=== PATIENT | female | born 1995 | race Caucasian/White ===

== ENCOUNTER 2018-01-27 00:24 | Emergency (ER) | payer MEDICAID ==
[2018-01-27 00:31] VITALS: BP 132/72
== END 2018-01-27 04:00 | disposition left against medical advice (07) ==
LOC: ER 00:24
DX: Z53.21 Procedure and treatment not carried out due to patient leaving prior to being seen by health care provider (principal)

== ENCOUNTER 2019-02-11 02:46 | Outpatient (CLI) | payer MEDICAID ==
[2019-02-11 03:27] LABS: APPEARANCE,URINE CLOUDY; BILIRUBIN,URINE NEGATIVE (NEGATIVE); COLOR,URINE YELLOW; GLUCOSE, URINE NEGATIVE (NEGATIVE); KETONES,URINE NEGATIVE (NEGATIVE); LEUKOCYTE ESTERASE,URINE LARGE (NEGATIVE); NITRITE,URINE NEGATIVE (NEGATIVE); PROTEIN,URINE NEGATIVE (NEGATIVE); UROBILINOGEN,URINE NEGATIVE mg/dL (<2.0)
[2019-02-11 03:40] LABS: URINE AMPHETAMINES SCREEN NEGATIVE; URINE BARBITURATES SCREEN NEGATIVE; URINE BENZODIAZEPINES SCREEN NEGATIVE; URINE COCAINE SCREEN NEGATIVE; URINE MARIJUANA (THC) SCREEN NEGATIVE; URINE METHADONE SCREEN NEGATIVE; URINE PHENCYCLIDINE SCREEN NEGATIVE
== END 2019-02-11 06:40 | disposition home or self-care (01) ==
LOC: LC 02:46 → EEVIPCON 02:46 → LC 06:40
PROVIDERS: ATTEND Obstetrics & Gynecology
DX: O26.899 Other specified pregnancy related conditions, unspecified trimester (principal); Z91.81 History of falling; Z87.891 Personal history of nicotine dependence
CPT/HCPCS: 80307; 81001

== ENCOUNTER 2019-02-11 20:53 | Emergency (ER) | payer MEDICAID ==
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
[2019-02-11] MEDS ORDERED: ACETAMINOPHEN 325 MG TABLET PO ONE (22:46)
[2019-02-11 23:05] VITALS: BP 133/62
== END 2019-02-11 23:06 | disposition home or self-care (01) ==
LOC: ER 20:53
DX: O9A.213 Injury, poisoning and certain other consequences of external causes complicating pregnancy, third trimester (principal); S39.012A Strain of muscle, fascia and tendon of lower back, initial encounter; S40.011A Contusion of right shoulder, initial encounter; S30.1XXA Contusion of abdominal wall, initial encounter; S60.416A Abrasion of right little finger, initial encounter; M54.9 Dorsalgia, unspecified; Y04.0XXA Assault by unarmed brawl or fight, initial encounter; Z87.891 Personal history of nicotine dependence
CPT/HCPCS: 99283; J3490

== ENCOUNTER 2019-03-27 12:12 | Outpatient (CLI) | payer MEDICAID ==
[2019-03-27] MEDS ORDERED: RINGERS SOLUTION,LACTATED 1,000 ML IV PRN (12:37)
[2019-03-27] MEDS ORDERED: PROMETHAZINE HCL INJ 25 MG/1 ML VIAL ONE (12:37)
[2019-03-27] MEDS ORDERED: RINGERS SOLUTION,LACTATED 1,000 ML IV ONE (12:37)
[2019-03-27] MEDS ORDERED: PROMETHAZINE HCL INJ 25 MG/1 ML VIAL IV ONE (12:38)
[2019-03-27 12:41] LABS: BACTERIA (WET MOUNT) 4+ BACTERIA SEEN; RBCS (WET MOUNT) RARE RBCS SEEN; T.VAGINALIS (WET MOUNT) NO TRICHOMONAS SEEN; WBCS (WET MOUNT) 4+ WBCS SEEN; YEAST (WET MOUNT) NO YEAST SEEN
[2019-03-27 12:42] LABS: EPITHELIALS (WET MOUNT) 4+ EPITHELIALS SEEN
[2019-03-27 12:46] LABS: APPEARANCE,URINE SLIGHTLY-CLOUDY; BILIRUBIN,URINE NEGATIVE (NEGATIVE); COLOR,URINE YELLOW; GLUCOSE, URINE NEGATIVE (NEGATIVE); KETONES,URINE TRACE mg/dL (NEGATIVE); LEUKOCYTE ESTERASE,URINE MODERATE (NEGATIVE); NITRITE,URINE NEGATIVE (NEGATIVE); PROTEIN,URINE NEGATIVE (NEGATIVE); URINE SPECIFIC GRAVITY 1.018
[2019-03-27 13:03] LABS: URINE AMPHETAMINES SCREEN NEGATIVE; URINE BARBITURATES SCREEN NEGATIVE; URINE BENZODIAZEPINES SCREEN NEGATIVE; URINE COCAINE SCREEN NEGATIVE; URINE MARIJUANA (THC) SCREEN NEGATIVE; URINE METHADONE SCREEN NEGATIVE; URINE PHENCYCLIDINE SCREEN NEGATIVE
[2019-03-27] MEDS ORDERED: DEXTROSE 5%-LACTATED RINGERS 1,000 ML IV PRN (14:01)
[2019-03-27 14:12] LABS: CHLAM PCR NOT DETECTED (NOT DETECT)
[2019-03-27 16:07] LABS: ABSOLUTE LYMPHOCYTES (AUTO) 0.8 10^3/uL (0.5-4.7); ABSOLUTE MONOCYTES (AUTO) 0.4 10^3/uL (0.1-1.4); ABSOLUTE NEUT (AUTO) 5.3 10^3/uL (1.7-8.2); BASOPHILS % (AUTO) 0.1 % (0-2); EOSINOPHILS % (AUTO) 0.2 % (0-6); HEMATOCRIT 31.4 % (36.0-47.0); HEMOGLOBIN 10.5 g/dL (12.0-15.5); LYMPHOCYTES % (AUTO) 11.7 % (13-45); MEAN CORPUSCULAR HEMOGLOBIN 28.3 pg (27.0-33.4); MEAN CORPUSCULAR HGB CONC 33.6 g/dL (32.0-36.0); MEAN CORPUSCULAR VOLUME 84 fl (80-97); MONOCYTES % (AUTO) 6.3 % (3-13); PLATELET COUNT 156 10^3/uL (150-450); RED BLOOD COUNT 3.72 10^6/uL (3.72-5.28); RED CELL DISTRIBUTION WIDTH 14.5 % (11.5-14.0); SEGMENTED NEUTROPHILS % (AUTO) 81.7 % (42-78); TOTAL CELLS COUNTED % (AUTO) 100 %; WHITE BLOOD COUNT 6.5 10^3/uL (4.0-10.5)
[2019-03-27 16:26] LABS: ALBUMIN 2.8 g/dL (3.5-5.0); ALKALINE PHOSPHATASE 79 U/L (38-126); ANION GAP 6 (5-19); ASPARTATE AMINO TRANSFERASE 13 U/L (14-36); BILIRUBIN,DIRECT 0.2 mg/dL (0.0-0.4); BILIRUBIN,TOTAL 0.4 mg/dL (0.2-1.3); BLOOD UREA NITROGEN 5 mg/dL (7-20); CALCIUM 8.3 mg/dL (8.4-10.2); CARBON DIOXIDE 24 mmol/L (22-30); CHLORIDE 105 mmol/L (98-107); GLUCOSE 81 mg/dL (75-110); POTASSIUM 3.7 mmol/L (3.6-5.0); TOTAL PROTEIN 5.4 g/dL (6.3-8.2)
--- NOTE | 2019-03-27 17:09 | RADIOLOGY REPORT (SQ) ---
EXAM DESCRIPTION: U/S OB LIMITED COMPLETED DATE/TIME: 03/27/2019 5:00 pm REASON FOR STUDY: iup 34.5 for CAROL COMPARISON: None. TECHNIQUE: Limited transabdominal grayscale ultrasound for evaluation of specific requested obstetri herman parameters. LIMITATIONS: None. FINDINGS: CERVICAL LENGTH: 4.1 cm. Closed. CAROL: 12.4 cm. Cm. FHR: 160 beats per minute. PRESENTATION: Cephalic. PLACENTA: Anterior, grade 1. ANATOMY: Not assessed OTHER: No other significant findings. IMPRESSION: LIMITED OBSTETRICAL ULTRASOUND WITH MEASURED PARAMETERS DELINEATED ABOVE. Trimester of : Third trimester - 28 weeks to delivery. TECHNICAL DOCUMENTATION: JOB ID: [id number] [employer]- All Rights Reserved Reading location - IP/workstation name: [email or web address]
== END 2019-03-27 21:47 | disposition home or self-care (01) ==
LOC: EEVIPCON 12:12 → LC 12:12
PROVIDERS: ATTEND Student in an Organized Health Care Education/Training Program
DX: O21.2 Late vomiting of pregnancy (principal); Z3A.34 34 weeks gestation of pregnancy
CPT/HCPCS: 59025; 36415; 87210; 85025; 80053; 81001; 80307; 87491; 87591; 84112; 76815; J2550; 87086

== ENCOUNTER 2019-04-23 22:56 | Outpatient (CLI) | payer MEDICAID ==
[2019-04-23 23:48] LABS: APPEARANCE,URINE CLOUDY; BILIRUBIN,URINE NEGATIVE (NEGATIVE); COLOR,URINE AMBER; GLUCOSE, URINE NEGATIVE (NEGATIVE); KETONES,URINE TRACE mg/dL (NEGATIVE); LEUKOCYTE ESTERASE,URINE LARGE (NEGATIVE); NITRITE,URINE NEGATIVE (NEGATIVE); PROTEIN,URINE 100 mg/dL (NEGATIVE); URINE SPECIFIC GRAVITY 1.027
[2019-04-24 00:17] LABS: URINE AMPHETAMINES SCREEN NEGATIVE; URINE BARBITURATES SCREEN NEGATIVE; URINE BENZODIAZEPINES SCREEN NEGATIVE; URINE COCAINE SCREEN NEGATIVE; URINE MARIJUANA (THC) SCREEN NEGATIVE; URINE METHADONE SCREEN NEGATIVE; URINE PHENCYCLIDINE SCREEN NEGATIVE
--- NOTE | 2019-04-24 00:34 | Non Stress Test Report ---
Non Stress Test Datetime Report Generated by CPN: 04/24/2019 00:33 DEMOGRAPHIC EGA NST: 38.4 INDICATION Indication for Study: Ordered by Provider; Other Indication for Study (NST) Other: Labor check MONITORING Monitor Explained: Monitor Explained; Test Explained; Patient Verbalized Understanding Time on Monitor: 04/23/2019 23:39 Time on Monitor: 04/23/2019 23:39 Time off Monitor: 04/24/2019 00:30 NST Duration: 51 NST INTERVENTIONS NST Interventions: PO Hydration; IV Fluids Physician Notified NST: Dr. Roland Physician Notified NST: Roland BABY A: [id number] BABY A Movement : Present Movement : Present Contraction Frequency : 0 FHR Baseline : 145 Accelerations : 15X15 Decelerations : Variable Variability : Moderate 6-25bpm NST Review: Meets Criteria for Reactive NST NST Review and Verified By : Cullen Garcia RN NST Results: Reactive NST COMMENTS NST Comments: Provider reviewed strip. NST REPORT Report Trigger: Send Report
== END 2019-04-24 01:42 | disposition home or self-care (01) ==
LOC: LC 22:56
PROVIDERS: ATTEND Obstetrics & Gynecology
PROC: 4A1HXCZ Monitoring of Products of Conception, Cardiac Rate, External Approach (ICD-10-PCS; principal; 2019-04-23)
DX: O47.1 False labor at or after 37 completed weeks of gestation (principal); Z3A.38 38 weeks gestation of pregnancy
CPT/HCPCS: 59025; 80307; 81005; 84112

== ENCOUNTER 2019-04-30 05:57 | Inpatient (IN) | payer MEDICAID ==
[2019-04-27 11:52] LABS: ABSOLUTE LYMPHOCYTES (AUTO) 1.5 10^3/uL (0.5-4.7); ABSOLUTE MONOCYTES (AUTO) 0.6 10^3/uL (0.1-1.4); ABSOLUTE NEUT (AUTO) 4.5 10^3/uL (1.7-8.2); BASOPHILS % (AUTO) 0.3 % (0-2); EOSINOPHILS % (AUTO) 0.4 % (0-6); HEMOGLOBIN 11.8 g/dL (12.0-15.5); LYMPHOCYTES % (AUTO) 22.8 % (13-45); MEAN CORPUSCULAR HEMOGLOBIN 27.6 pg (27.0-33.4); MEAN CORPUSCULAR HGB CONC 33.8 g/dL (32.0-36.0); MEAN CORPUSCULAR VOLUME 82 fl (80-97); MONOCYTES % (AUTO) 8.6 % (3-13); PLATELET COUNT 212 10^3/uL (150-450); RED BLOOD COUNT 4.28 10^6/uL (3.72-5.28); RED CELL DISTRIBUTION WIDTH 15.8 % (11.5-14.0); SEGMENTED NEUTROPHILS % (AUTO) 67.9 % (42-78); TOTAL CELLS COUNTED % (AUTO) 100 %; WHITE BLOOD COUNT 6.6 10^3/uL (4.0-10.5)
[2019-04-27 11:55] LABS: APPEARANCE,URINE CLOUDY; BILIRUBIN,URINE NEGATIVE (NEGATIVE); CALCIUM OXALATE CRYSTALS,URINE TOO NUMEROUS TO CNT /HPF; COLOR,URINE AMBER; GLUCOSE, URINE NEGATIVE (NEGATIVE); KETONES,URINE NEGATIVE (NEGATIVE); LEUKOCYTE ESTERASE,URINE MODERATE (NEGATIVE); NITRITE,URINE NEGATIVE (NEGATIVE); PROTEIN,URINE 30 mg/dL (NEGATIVE); URINE SPECIFIC GRAVITY 1.026
[2019-04-27 12:07] LABS: URINE AMPHETAMINES SCREEN NEGATIVE; URINE BARBITURATES SCREEN NEGATIVE; URINE BENZODIAZEPINES SCREEN NEGATIVE; URINE COCAINE SCREEN NEGATIVE; URINE MARIJUANA (THC) SCREEN NEGATIVE; URINE METHADONE SCREEN NEGATIVE; URINE PHENCYCLIDINE SCREEN NEGATIVE
[2019-04-30] MEDS ORDERED: CEFAZOLIN 2 GM/D5W RTU 2 GM/50 ML RTUPB IV PRN (06:27)
[2019-04-30] MEDS ORDERED: RINGERS SOLUTION,LACTATED 1,000 ML IV ONE (06:30)
[2019-04-30] MEDS ORDERED: CEFAZOLIN INJ 1 GM VIAL ONE (06:33)
[2019-04-30] MEDS ORDERED: DIPHENHYDRAMINE HCL 50 MG/ML VIAL IV PRN (08:22)
[2019-04-30] MEDS ORDERED: FENTANYL CITRATE INJ/PF 100 MCG/2 ML AMPUL IV PRN ×3 (08:22)
[2019-04-30] MEDS ORDERED: OXYCODONE-ACETAMINOPHEN 5-325 MG TABLET PO PRN ×2 (08:22)
[2019-04-30] MEDS ORDERED: PROMETHAZINE HCL INJ 25 MG/1 ML VIAL IV PRN ×3 (08:22→09:48)
[2019-04-30] MEDS ORDERED: MEPERIDINE HCL/PF INJ 25 MG/1 ML DISP.SYRIN IV PRN (08:22)
[2019-04-30] MEDS ORDERED: MIDAZOLAM 2 MG/2 ML INJ ONE (08:28)
[2019-04-30] MEDS ORDERED: EPHEDRINE SULFATE INJ 50 MG/1 ML AMPULE ONE (08:28)
[2019-04-30] MEDS ORDERED: FENTANYL CITRATE INJ/PF 100 MCG/2 ML AMPUL ONE ×2 (08:28→11:48)
[2019-04-30] MEDS ORDERED: MORPHINE SULFATE 10 MG/ML INJ IM PRN (09:48)
[2019-04-30] MEDS ORDERED: SIMETHICONE 80 MG TAB.CHEW PO PRN (09:48)
[2019-04-30] MEDS ORDERED: OXYTOCIN/NORMAL SALINE 20 UNIT/1,000 ML RTUINJ IV PRN (09:48)
[2019-04-30] MEDS ORDERED: ACETAMINOPHEN 1,000 MG/100 ML RTUPB IV PRN (09:48)
[2019-04-30] MEDS ORDERED: MEASLES,MUMPS&RUBELLA VACC/PF 0.5 ML VIAL SUBCUT PRN (09:48)
[2019-04-30] MEDS ORDERED: ACETAMINOPHEN 325 MG TABLET PO PRN (09:48)
[2019-04-30] MEDS ORDERED: DIPH/PERTUSS(ACELL)/TETANUS VAC/PF 0.5 ML SYR (>=10YO) IM PRN (09:48)
--- NOTE | 2019-04-30 09:48 | PDOC DELIVERY SUMMARY ---
Delivery Summary - Maternal Hx : II Hx # Term Pregnancies: 1 JESSIE: 05/03/19 Gestational Age: 39/3 Risk Factors: Previous Ruptured Membranes: AROM Time of Rupture: 09:25 Fluids: Clear - Delivery Presentation: Vertex Heart Rate Monitoring: Done Pre-Operatively Support Person Present: Yes Location: LD : Scheduled Placenta: Within Normal Limits Nuchal Cord: Yes Delivery of Placenta Date: 04/30/19 Delivery of Placenta Time: 09:28 - Medications Type of Anesthesia:: Spinal
--- NOTE | 2019-04-30 09:51 | Operative Report ---
Operative Report DATE OF SURGERY: 04/30/19 PREOPERATIVE DIAGNOSIS: IUP at term prior section POSTOPERATIVE DIAGNOSIS: Same OPERATION: Repeat low transverse section delivery viable female SURGEON: SHERRY CASTILLO ANESTHESIA: Spinal TISSUE REMOVED OR ALTERED: Placenta COMPLICATIONS: None PROCEDURE: The patient was taken to the operating room where spinal anesthesia was obtained and found to be adequate. She was then prepped and draped in the normal sterile fashion and placed in the dorsal supine position with a leftward tilt. A Pfannenstiel skin incision was then made and carried through to the underlying layers of the fascia with the scalpel. The fascia was incised in the midline and the incision extended laterally with the Watkins scissors. The superior aspect of the fascial incision was then grasped with Duglas clamps elevated and the underlying rectus muscles dissected off [bluntly]. Attention was then turned to the inferior aspect of the fascial incision which in a similar fashion was grasped, tented up with Jackie clamps, and the rectus muscles dissected off [bluntly]. The rectus muscles were then in the midline and the peritoneum at the amount identified and entered [bluntly]. The peritoneal incision was then extended superiorly and inferiorly with good visualization of the bladder. [The bladder blade was inserted and the vesicouterine peritoneum identified grasped with Belgian pickups and entered sharply with the Metzenbaum scissors.[ his incision was then extended laterally with the Metzenbaum scissors and a bladder flap created digitally.] The bladder blade was then reinserted and the lower uterine segment incised in a transverse fashion with the scalpel. The uterine incision was then extended bluntly. The bladder blade was removed and the infant's head was delivered from cephalic presentation atraumatically. The nose and mouth were suctioned and the cord doubly clamped and cut. And the infant was handed off to waiting pediatricians. The placenta was then delivered manully and the uterus exteriorized and cleared of all clots and debris. The uterine incision was then repaired with 1-0 Vicryl in a running locked fashion. A second layer of the same suture was used to obtain hemostasis via imbrication of the initial layer. The uterus was returned to the patient's abdomen. The gutters were cleared of all clots and debris. All operative sites were noted to be hemostatic. The fascia was reapproximated with 0 Vicryl in a running fashion from each lateral edge to the midline. The patient tolerated the procedure well. Sponge lap needle and instrument counts are correct -2. 2 g of Ancef were given prior to skin incision. The patient was taken to the recovery area awake and in stable condition.
[2019-04-30] MEDS ORDERED: ACETAMINOPHEN 1,000 MG/100 ML RTUPB IV ONE (11:08)
[2019-04-30] MEDS ORDERED: OXYTOCIN 10 UNIT/ML VIAL ONE (11:11)
[2019-04-30] MEDS: PRENATAL VITAMIN W DHA CAPSULE PO SCH (12:21)
[2019-04-30] MEDS: DOCUSATE SODIUM 100 MG CAPSULE PO SCH ×2 (12:21→17:45)
[2019-04-30] MEDS: KETOROLAC TROMETHAMINE INJ/PF 30 MG/1 ML SDV IV SCH ×2 (13:07→21:11)
[2019-05-01] MEDS ORDERED: LIDOCAINE 0.5% INJ-PF (5 MG/ML) 50 ML SDV SUBCUT PRN (05:00)
[2019-05-01] MEDS ORDERED: LACTATED RINGERS 1000 ML IV PRN (05:00)
[2019-05-01] MEDS: KETOROLAC TROMETHAMINE INJ/PF 30 MG/1 ML SDV IV SCH ×3 (05:03→23:08)
[2019-05-01 06:47] LABS: HEMATOCRIT 29.9 % (36.0-47.0); HEMOGLOBIN 10.1 g/dL (12.0-15.5); MEAN CORPUSCULAR HEMOGLOBIN 27.9 pg (27.0-33.4); MEAN CORPUSCULAR HGB CONC 33.8 g/dL (32.0-36.0); MEAN CORPUSCULAR VOLUME 82 fl (80-97); PLATELET COUNT 180 10^3/uL (150-450); RED BLOOD COUNT 3.63 10^6/uL (3.72-5.28); RED CELL DISTRIBUTION WIDTH 16.2 % (11.5-14.0); WHITE BLOOD COUNT 10.7 10^3/uL (4.0-10.5)
[2019-05-01] MEDS: OXYCODONE-ACETAMINOPHEN 5-325 MG TABLET PO PRN ×3 (08:56→17:04)
[2019-05-01] MEDS: DOCUSATE SODIUM 100 MG CAPSULE PO SCH ×2 (08:59→17:02)
[2019-05-01] MEDS: PRENATAL VITAMIN W DHA CAPSULE PO SCH (08:59)
[2019-05-01] MEDS: IBUPROFEN 800 MG TABLET PO SCH ×2 (11:43→17:02)
--- NOTE | 2019-05-01 14:15 | PDOC PROGRESS REPORT ---
Subjective-OB Progress Note for:: 05/01/19 Subjective: reports bleeding slowing, pain controlled with current meds, denies needs, + passing gas Physical Exam (OB) Vital Signs: Temp Pulse Resp BP Pulse Ox 97.9 F 84 14 109/65 97 05/01/19 07:53 05/01/19 07:53 05/01/19 07:53 05/01/19 07:53 05/01/19 07:53 Intake & Output 04/30/19 05/01/19 05/02/19 06:59 06:59 06:59 Intake Total 720 Output Total 1600 Balance -880 - Dressing Removed: Yes - wet from shower, removed Closure Type: Surgical Glue - well approximated, no s/s infection - Abdomen Description: Soft, Round Hernia Present: No Fundal Description: Firm, Midline Fundal Height: u/u - u/2 - Abdominal Inspection: Other - bruise to low abdomen. pt states it is getting better Distension: No distension Tenderness: Nontender - Extremities Lower extremities: Duong's sign - neg Ankle: Normal, Nontender Objective-Diagnostic Laboratory: 05/01/19 06:29 05/01/19 06:29 WBC 10.7 H RBC 3.63 L Hgb 10.1 L Hct 29.9 L MCV 82 MCH 27.9 MCHC 33.8 RDW 16.2 H Plt Count 180 Assessment and Plan(PN) - Assessment and Plan (1) delivery delivered Is this a current diagnosis for this admission?: Yes - Time Spent with Patient Time with patient: Less than 15 minutes Medications reviewed and adjusted accordingly: Yes - Disposition Anticipated Discharge: Home Within: within 24 hours
[2019-05-02] MEDS: IBUPROFEN 800 MG TABLET PO SCH ×3 (00:15→12:02)
[2019-05-02] MEDS: KETOROLAC TROMETHAMINE INJ/PF 30 MG/1 ML SDV IV SCH (06:01)
[2019-05-02] MEDS ORDERED: INFLUENZA QUAD (6MOS+) 2019-20 VAC 0.5 ML SYR IM ONE (08:00)
[2019-05-02] MEDS: PRENATAL VITAMIN W DHA CAPSULE PO SCH (09:11)
[2019-05-02] MEDS: DOCUSATE SODIUM 100 MG CAPSULE PO SCH (09:11)
[2019-05-02] MEDS: OXYCODONE-ACETAMINOPHEN 5-325 MG TABLET PO PRN (09:11)
[2019-05-02 13:04] VITALS: BP 124/72
--- NOTE | 2019-05-02 13:33 | PDOC DISCHARGE SUMMARY ---
Impression - Admit/DC Date/PCP Admission Date/Primary Care Provider: 04/30/19 05:57 Discharge Date: 05/02/19 - Discharge Diagnosis (1) delivery delivered Is this a current diagnosis for this admission?: Yes (2) Acute blood loss anemia Is this a current diagnosis for this admission?: Yes - Additional Information Resuscitation Status: Full Code Discharge Diet: As Tolerated, Regular Discharge Activity: Activity As Tolerated, Balance Activity w/Rest, No Driving, No Lifting Over 10 Pounds, Pelvic Rest, No tub bath, Walk Frequently Prescriptions: Oxycodone HCl/Acetaminophen [Percocet 5-325 mg Tablet] 2 tab PO Q4HP PRN #20 tablet PRN Reason: For Pain Scale 3-5 Ibuprofen [Motrin 800 mg Tablet] 800 mg PO Q8HP PRN #30 tablet PRN Reason: Abdominal Cramping Docusate Sodium [Colace 100 mg Capsule] 100 mg PO BID #60 capsule Ferrous Sulfate [Feosol 325 mg Tablet] 325 mg PO BID #60 tablet Home Medications: Vit/Iron Fum/Folic AC [ Tablet] 1 each PO DAILY 02/11/19 Docusate Sodium [Colace 100 mg Capsule] 100 mg PO BID #60 capsule 05/02/19 Ferrous Sulfate [Feosol 325 mg Tablet] 325 mg PO BID #60 tablet 05/02/19 Ibuprofen [Motrin 800 mg Tablet] 800 mg PO Q8HP PRN #30 tablet 05/02/19 Oxycodone HCl/Acetaminophen [Percocet 5-325 mg Tablet] 2 tab PO Q4HP PRN #20 tablet 05/02/19 Results Laboratory Results: WBC 10.7 10^3/uL (4.0-10.5) H 05/01/19 06:29 RBC 3.63 10^6/uL (3.72-5.28) L 05/01/19 06:29 Hgb 10.1 g/dL (12.0-15.5) L 05/01/19 06:29 Hct 29.9 % (36.0-47.0) L 05/01/19 06:29 MCV 82 fl (80-97) 05/01/19 06:29 MCH 27.9 pg (27.0-33.4) 05/01/19 06:29 MCHC 33.8 g/dL (32.0-36.0) 05/01/19 06:29 RDW 16.2 % (11.5-14.0) H 05/01/19 06:29 Plt Count 180 10^3/uL (150-450) 05/01/19 06:29 Lymph % (Auto) 22.8 % (13-45) 04/27/19 11:11 Campbell % (Auto) 8.6 % (3-13) 04/27/19 11:11 Eos % (Auto) 0.4 % (0-6) 04/27/19 11:11 Baso % (Auto) 0.3 % (0-2) 04/27/19 11:11 Absolute Neuts (auto) 4.5 10^3/uL (1.7-8.2) 04/27/19 11:11 Absolute Lymphs (auto) 1.5 10^3/uL (0.5-4.7) 04/27/19 11:11 Absolute Monos (auto) 0.6 10^3/uL (0.1-1.4) 04/27/19 11:11 Absolute Eos (auto) 0.0 10^3/uL (0.0-0.6) 04/27/19 11:11 Absolute Basos (auto) 0.0 10^3/uL (0.0-0.2) 04/27/19 11:11 Seg Neutrophils % 67.9 % (42-78) 04/27/19 11:11 Urine Color BAMBI 04/27/19 11:00 Urine Appearance CLOUDY 04/27/19 11:00 Urine pH 6.0 (5.0-9.0) 04/27/19 11:00 Ur Specific Winters 1.026 04/27/19 11:00 Urine Protein 30 mg/dL (NEGATIVE) H 04/27/19 11:00 Urine Glucose (UA) NEGATIVE mg/dL (NEGATIVE) 04/27/19 11:00 Urine Ketones NEGATIVE mg/dL (NEGATIVE) 04/27/19 11:00 Urine Blood NEGATIVE (NEGATIVE) 04/27/19 11:00 Urine Nitrite NEGATIVE (NEGATIVE) 04/27/19 11:00 Urine Bilirubin NEGATIVE (NEGATIVE) 04/27/19 11:00 Urine Urobilinogen 4.0 mg/dL (<2.0) H 04/27/19 11:00 Ur Leukocyte Esterase MODERATE (NEGATIVE) H 04/27/19 11:00 Urine WBC (Auto) 20 /HPF 04/27/19 11:00 Urine RBC (Auto) 1 /HPF 04/27/19 11:00 Squamous Epi Cells Auto 25 /HPF 04/27/19 11:00 Calcium Oxalate Cr Auto TOO NUMEROUS TO CNT /HPF 04/27/19 11:00 Urine Mucus (Auto) MANY /LPF 04/27/19 11:00 Urine Ascorbic Acid NEGATIVE (NEGATIVE) 04/27/19 11:00 Urine Opiates Screen NEGATIVE 04/27/19 11:00 Urine Methadone Screen NEGATIVE 04/27/19 11:00 Ur Barbiturates Screen NEGATIVE 04/27/19 11:00 Ur Phencyclidine Scrn NEGATIVE 04/27/19 11:00 Ur Amphetamines Screen NEGATIVE 04/27/19 11:00 U Benzodiazepines Scrn NEGATIVE 04/27/19 11:00 Urine Cocaine Screen NEGATIVE 04/27/19 11:00 U Marijuana (THC) Screen NEGATIVE 04/27/19 11:00 Blood Type O POSITIVE 04/29/19 14:54 Antibody Screen NEGATIVE 04/29/19 14:54
== END 2019-05-02 14:50 | disposition home or self-care (01) | DRG 788 ==
LOC: 2S 05:57
PROVIDERS: ADMIT Obstetrics & Gynecology Gynecology; ATTEND Obstetrics & Gynecology Gynecology
PROC: 10D00Z1 Extraction of Products of Conception, Low, Open Approach (ICD-10-PCS; principal; 2019-04-30 09:00)
PROC: 3E02340 Introduction of Influenza Vaccine into Muscle, Percutaneous Approach (ICD-10-PCS; 2019-05-02)
DX: O34.211 Maternal care for low transverse scar from previous cesarean delivery (principal); N85.8 Other specified noninflammatory disorders of uterus; Z3A.39 39 weeks gestation of pregnancy; Z37.0 Single live birth; O99.02 Anemia complicating childbirth; Z23 Encounter for immunization
CPT/HCPCS: 1961; 36415; 80307; 81001; 85025; 85027; 86850; 86900; 86901; 90686; 94799; J0131; J1885; J2250; J2270; J2590; J3010; J3490; J7120

== ENCOUNTER 2019-08-01 23:04 | Emergency (ER) | payer SELFPAY ==
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
[2019-08-02] MEDS ORDERED: KETOROLAC TROMETHAMINE 60 MG/2 ML SDV IM ONE (02:05)
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
[2019-08-02 03:03] VITALS: BP 112/71
== END 2019-08-02 03:03 | disposition home or self-care (01) ==
LOC: ER 23:04
DX: S09.90XA Unspecified injury of head, initial encounter (principal); S40.811A Abrasion of right upper arm, initial encounter; S80.211A Abrasion, right knee, initial encounter; S20.91XA Abrasion of unspecified parts of thorax, initial encounter; R07.9 Chest pain, unspecified; R51 Headache; Y04.2XXA Assault by strike against or bumped into by another person, initial encounter; Y92.009 Unspecified place in unspecified non-institutional (private) residence as the place of occurrence of the external cause; F17.200 Nicotine dependence, unspecified, uncomplicated; Z88.2 Allergy status to sulfonamides
CPT/HCPCS: 99284; 96372; 71046; J1885

== ENCOUNTER 2019-12-08 21:20 | Emergency (ER) | payer MEDICAID ==
[2019-12-08 23:48] LABS: APPEARANCE,URINE SLIGHTLY-CLOUDY; BILIRUBIN,URINE NEGATIVE (NEGATIVE); COLOR,URINE YELLOW; GLUCOSE, URINE NEGATIVE (NEGATIVE); KETONES,URINE NEGATIVE (NEGATIVE); LEUKOCYTE ESTERASE,URINE MODERATE (NEGATIVE); NITRITE,URINE NEGATIVE (NEGATIVE); PROTEIN,URINE NEGATIVE (NEGATIVE); URINE SPECIFIC GRAVITY 1.011; UROBILINOGEN,URINE NEGATIVE mg/dL (<2.0)
[2019-12-09] MEDS ORDERED: NORMAL SALINE 1000 ML 1,000 ML IV ONE (00:26)
[2019-12-09 02:03] LABS: ABSOLUTE BASOPHILS # (AUTO) 0.1 10^3/uL (0.0-0.2); ABSOLUTE LYMPHOCYTES (AUTO) 1.9 10^3/uL (0.5-4.7); ABSOLUTE MONOCYTES (AUTO) 0.7 10^3/uL (0.1-1.4); BASOPHILS % (AUTO) 0.7 % (0-2); EOSINOPHILS % (AUTO) 0.1 % (0-6); HEMATOCRIT 38.8 % (36.0-47.0); HEMOGLOBIN 13.2 g/dL (12.0-15.5); LYMPHOCYTES % (AUTO) 19.7 % (13-45); MEAN CORPUSCULAR HEMOGLOBIN 28.5 pg (27.0-33.4); MEAN CORPUSCULAR HGB CONC 34.1 g/dL (32.0-36.0); MEAN CORPUSCULAR VOLUME 84 fl (80-97); PLATELET COUNT 260 10^3/uL (150-450); RED BLOOD COUNT 4.64 10^6/uL (3.72-5.28); RED CELL DISTRIBUTION WIDTH 15.2 % (11.5-14.0); SEGMENTED NEUTROPHILS % (AUTO) 72.5 % (42-78); TOTAL CELLS COUNTED % (AUTO) 100 %; WHITE BLOOD COUNT 9.7 10^3/uL (4.0-10.5)
--- NOTE | 2019-12-09 02:07 | ER Document Report ---
ED GI/ - General Chief Complaint: Abdominal Pain Stated Complaint: NAUSEA,WEAKNESS Time Seen by Provider: 12/08/19 23:57 Primary Care Provider: LIVE BEAVERS MD [Primary Care Provider] - 12/10/19 Mode of Arrival: Ambulatory Information source: Patient Notes: Patient presents complaining of headache, nausea vomiting and periumbilical abdominal pain that started today. Patient reports some urinary frequency. Patient denies any vaginal bleeding or discharge. TRAVEL OUTSIDE OF THE [place] IN LAST 30 DAYS: No - HPI Patient complains to provider of: Abdominal pain, Vomiting Onset: This morning Timing/Duration: Persistent Quality of pain: Achy, Sharp Pain Level: 3 Location: Other - Periumbilical Menstrual period history: denies: Associated symptoms: Loss of appetite, Urinary frequency. denies: Urinary hesitancy, Urinary retention, Vaginal discharge Exacerbated by: Denies Relieved by: Denies Similar symptoms previously: No Recently seen / treated by doctor: No - Related Data Allergies/Adverse Reactions: Sulfa (Sulfonamide Antibiotics) Allergy (Verified 02/11/19 21:27) Past Medical History - General Information source: Patient - Social History Smoking Status: Current Every Day Smoker Frequency of alcohol use: Occasional Drug Abuse: None Occupation: [employer] Lives with: Family Family History: Reviewed & Not Pertinent Patient has homicidal ideation: No Renal/ Medical History: Denies: Hx Peritoneal Dialysis Psychiatric Medical History: Reports: Hx Anxiety, Hx Depression Past Surgical History: Reports: Hx Section - Immunizations Hx Diphtheria, Pertussis, Tetanus Vaccination: Yes Review of Systems - Review of Systems Constitutional: No symptoms reported. denies: Fever, Recent illness EENT: No symptoms reported Cardiovascular: No symptoms reported Respiratory: No symptoms reported. denies: Cough, Short of breath Gastrointestinal: Abdominal pain, Nausea, Vomiting Genitourinary: Frequency Female Genitourinary: No symptoms reported Musculoskeletal: No symptoms reported. denies: Back pain Skin: No symptoms reported Hematologic/Lymphatic: No symptoms reported Neurological/Psychological: Headaches Physical Exam - Vital signs Vitals: Temp 98.9 F 12/08/19 23:25 - General General appearance: Appears well, Alert In distress: None - HEENT Head: Normocephalic, Atraumatic Eyes: Normal Conjunctiva: Normal Nasal: Normal Neck: Normal, Supple. No: Lymphadenopathy - Respiratory Respiratory status: No respiratory distress Chest status: Nontender Breath sounds: Normal. No: Rales, Rhonchi, Stridor, Wheezing Chest palpation: Normal - Cardiovascular Rhythm: Regular Heart sounds: S1 appreciated, S2 appreciated - Abdominal Inspection: Morbidly Obese Distension: No distension Tenderness: Tender - Periumbilical Organomegaly: No organomegaly - Back Back: Normal, Nontender. No: CVA tenderness - Extremities General upper extremity: Normal inspection, Normal ROM General lower extremity: Normal inspection, Normal ROM - Neurological Neuro grossly intact: Yes Cognition: Normal [place] Coma Scale Eye Opening: Spontaneous [place] Coma Scale Verbal: Oriented [place] Coma Scale Motor: Obeys Commands [place] Coma Scale Total: 15 - Psychological Associated symptoms: Normal affect, Normal mood - Skin Skin Temperature: Warm Skin Moisture: Dry Skin Color: Normal Course - Re-evaluation Re-evalutation: 12/09/19 04:[address] report demonstrates that patient IUD has migrated and is currently outside and superior to the uterus. Consulted with Dr. Bal regarding patient's CT report findings. She states that patient is stable at this time and can be followed up on an outpatient basis to have the IUD removed. 12/09/19 04:47 - Vital Signs Vital signs: Temp Pulse Resp BP Pulse Ox 98.3 F 87 16 119/77 98 12/09/19 05:05 12/09/19 05:05 12/09/19 05:05 12/09/19 05:05 12/09/19 05:05 - Laboratory Result Diagrams: 12/09/19 01:30 12/09/19 01:30 Laboratory results interpreted by me: 12/08/19 12/09/19 12/09/19 23:20 01:30 01:30 RDW 15.2 H Sodium 134.6 L Ur Leukocyte Esterase MODERATE H 12/09/19 04:47 Labs- Entire Visit 12/08/19 12/09/19 12/09/19 23:20 01:30 01:30 WBC 9.7 RBC 4.64 Hgb 13.2 Hct 38.8 MCV 84 MCH 28.5 MCHC 34.1 RDW 15.2 H Plt Count 260 Lymph % (Auto) 19.7 [place] % (Auto) 7.0 Eos % (Auto) 0.1 Baso % (Auto) 0.7 Absolute Neuts (auto) 7.0 Absolute Lymphs (auto) 1.9 Absolute Monos (auto) 0.7 Absolute Eos (auto) 0.0 Absolute Basos (auto) 0.1 Seg Neutrophils % 72.5 Sodium Potassium Chloride Carbon Dioxide Anion Gap BUN Creatinine Est GFR ( Amer) Est GFR (MDRD) Non-Af Glucose Calcium Total Bilirubin Direct Bilirubin Neonat Total Bilirubin Neonat Direct Bilirubin Neonat Indirect Bili AST ALT Alkaline Phosphatase Total Protein Albumin Lipase 36.2 Urine Color YELLOW Urine Appearance SLIGHTLY-CLOUDY Urine pH 7.0 Ur Specific Peel 1.011 Urine Protein NEGATIVE Urine Glucose (UA) NEGATIVE Urine Ketones NEGATIVE Urine Blood NEGATIVE Urine Nitrite NEGATIVE Urine Bilirubin NEGATIVE Urine Urobilinogen NEGATIVE Ur Leukocyte Esterase MODERATE H Urine WBC (Auto) 7 Urine RBC (Auto) 1 Urine Bacteria (Auto) TRACE Squamous Epi Cells Auto 14 Urine Mucus (Auto) OCC Urine Ascorbic Acid NEGATIVE Urine HCG, Qual NEGATIVE 12/09/19 01:30 WBC RBC Hgb Hct MCV MCH MCHC RDW Plt Count Lymph % (Auto) [place] % (Auto) Eos % (Auto) Baso % (Auto) Absolute Neuts (auto) Absolute Lymphs (auto) Absolute Monos (auto) Absolute Eos (auto) Absolute Basos (auto) Seg Neutrophils % Sodium 134.6 L Potassium 4.0 Chloride 102 Carbon Dioxide 23 Anion Gap 10 BUN 11 Creatinine 0.63 Est GFR ( Amer) > 60 Est GFR (MDRD) Non-Af > 60 Glucose 101 Calcium 9.0 Total Bilirubin 0.5 Direct Bilirubin 0.0 Neonat Total Bilirubin Not Reportable Neonat Direct Bilirubin Not Reportable Neonat Indirect Bili Not Reportable AST 18 ALT 21 Alkaline Phosphatase 58 Total Protein 6.9 Albumin 4.0 Lipase Urine Color Urine Appearance Urine pH Ur Specific Peel Urine Protein Urine Glucose (UA) Urine Ketones Urine Blood Urine Nitrite Urine Bilirubin Urine Urobilinogen Ur Leukocyte Esterase Urine WBC (Auto) Urine RBC (Auto) Urine Bacteria (Auto) Squamous Epi Cells Auto Urine Mucus (Auto) Urine Ascorbic Acid Urine HCG, Qual - Diagnostic Test Radiology reviewed: Reports reviewed Discharge - Discharge Clinical Impression: Abdominal pain Qualifiers: Abdominal location: unspecified location Qualified Code(s): R10.9 - Unspecified abdominal pain IUD migration Qualifiers: Encounter type: initial encounter Qualified Code(s): T83.32XA - Displacement of intrauterine contraceptive device, initial encounter Condition: Stable Disposition: HOME, SELF-CARE Instructions: Abdominal Pain ([facility]) Additional Instructions: Return immediately for any new or worsening symptoms Followup with your primary care provider, call tomorrow to make a followup appoi ntment Your IUD has migrated outside of your uterus. You will need additional backup control method. You will also need [facility] with [facility] for [facility] the [facility]UD. Contact the [facility] office on Tuesday to make a follow-up appointment. Referrals: LIVE BEAVERS MD [Primary Care Provider] - 12/10/19
[2019-12-09 02:43] LABS: ALKALINE PHOSPHATASE 58 U/L (38-126); ANION GAP 10 (5-19); ASPARTATE AMINO TRANSFERASE 18 U/L (14-36); BILIRUBIN,TOTAL 0.5 mg/dL (0.2-1.3); BLOOD UREA NITROGEN 11 mg/dL (7-20); CARBON DIOXIDE 23 mmol/L (22-30); CHLORIDE 102 mmol/L (98-107); GLUCOSE 101 mg/dL (75-110); TOTAL PROTEIN 6.9 g/dL (6.3-8.2)
--- NOTE | 2019-12-09 03:13 | RADIOLOGY REPORT (SQ) ---
EXAM DESCRIPTION: CT ABDOMEN PELVIS WITH IV CONTRAST COMPLETED DATE/TME: 12/09/2019 00:27 CLINICAL HISTORY: 24 years, Female, periumbilical abd pain COMPARISON: None. TECHNIQUE: Axial CT images of the abdomen and pelvis were obtained after the administration of IV contrast. Sagittal and coronal reformats were performed. [facility] [id number] Images stored on PACS. All CT scanners at this facility use dose modulation, iterative reconstruction, and/or weight based dosing when appropriate to reduce radiation dose to as low as reasonably achievable (ALARA). [facility]: Dose Right [facility]: CareDose [facility]: Dose Right [facility]: Teradose 4D [facility]: Virtual Computer LIMITATIONS: None. FINDINGS: The lung bases are clear. The liver, gallbladder, pancreas, spleen, and adrenal glands appear unremarkable. Both kidneys enhance normally. No evidence of hydronephrosis. There is no intraperitoneal free air or fluid. There is no lymphadenopathy. The stomach and small bowel are unremarkable. The appendix is normal. The colon contains a moderate amount of stool. The IUD is outside of the uterus and lies superior to the uterus. The uterus is otherwise unremarkable. The urinary bladder and bilateral adnexa are unremarkable. There are no lytic or blastic bone lesions. IMPRESSION: Malpositioned IUD with which is outside and superior to the uterus. Otherwise, no abnormalities detected within the abdomen or pelvis. TECHNICAL DOCUMENTATION: Quality ID # [id number]: Final reports with documentation of one or more dose reduction techniques (e.g., Automated exposure control, adjustment of the mA and/or kV according to patient size, use of iterative reconstruction technique) copyright 2011 [employer]- All Rights Reserved
[2019-12-09] MEDS ORDERED: HYDROCODONE/ACETAMINOPHEN 5-325 MG (6 TAB/ER DISP) PO PRN (04:48)
[2019-12-09 05:08] VITALS: BP 119/77
== END 2019-12-09 05:15 | disposition home or self-care (01) ==
LOC: ER 21:20
DX: T83.32XA Displacement of intrauterine contraceptive device, initial encounter (principal); Y76.8 Miscellaneous obstetric and gynecological devices associated with adverse incidents, not elsewhere classified; R51 Headache; R11.2 Nausea with vomiting, unspecified; R10.33 Periumbilical pain; R10.815 Periumbilic abdominal tenderness; R35.0 Frequency of micturition; R63.0 Anorexia; Z88.2 Allergy status to sulfonamides; F17.200 Nicotine dependence, unspecified, uncomplicated
CPT/HCPCS: 99284; 96360; 36415; 87086; 83690; 85025; 81025; 80053; 81001; 74177; J7030

== ENCOUNTER 2019-12-21 06:09 | Day surgery (SDC) | payer MEDICAID ==
[2019-12-18 11:50] LABS: HEMATOCRIT 39.2 % (36.0-47.0); HEMOGLOBIN 13.5 g/dL (12.0-15.5); MEAN CORPUSCULAR HEMOGLOBIN 28.4 pg (27.0-33.4); MEAN CORPUSCULAR HGB CONC 34.4 g/dL (32.0-36.0); MEAN CORPUSCULAR VOLUME 83 fl (80-97); PLATELET COUNT 324 10^3/uL (150-450); RED BLOOD COUNT 4.74 10^6/uL (3.72-5.28); RED CELL DISTRIBUTION WIDTH 15.1 % (11.5-14.0); WHITE BLOOD COUNT 10.5 10^3/uL (4.0-10.5)
[2019-12-18 11:52] LABS: APPEARANCE,URINE CLOUDY; BILIRUBIN,URINE NEGATIVE (NEGATIVE); COLOR,URINE YELLOW; GLUCOSE, URINE NEGATIVE (NEGATIVE); KETONES,URINE NEGATIVE (NEGATIVE); LEUKOCYTE ESTERASE,URINE MODERATE (NEGATIVE); NITRITE,URINE NEGATIVE (NEGATIVE); PROTEIN,URINE NEGATIVE (NEGATIVE); URINE SPECIFIC GRAVITY 1.024; UROBILINOGEN,URINE NEGATIVE mg/dL (<2.0)
[~2019-12-21 06:09] MED LIST: LACTATED RINGERS 1000 ML IV PRN; LIDOCAINE 0.5% INJ-PF (5 MG/ML) 50 ML SDV SUBCUT PRN
[2019-12-21] MEDS ORDERED: MIDAZOLAM 2 MG/2 ML INJ ONE (06:29)
[2019-12-21] MEDS ORDERED: FENTANYL CITRATE INJ/PF 100 MCG/2 ML AMPUL ONE ×2 (06:29→09:24)
[2019-12-21] MEDS ORDERED: PROPOFOL INJ 200 MG/20 ML VIAL IV ONE (06:29)
[2019-12-21] MEDS ORDERED: ONDANSETRON HCL INJ/PF 4 MG/2 ML SDV ONE (06:29)
[2019-12-21] MEDS ORDERED: DEXAMETHASONE SOD PHOSPHATE INJ 4 MG/1 ML VIAL ONE (06:29)
[2019-12-21] MEDS ORDERED: BUPIVACAINE HCL 0.25 % INJ/PF (2.5 MG/1 ML) 30 ML VIAL ONE (08:01)
[2019-12-21] MEDS ORDERED: DIPHENHYDRAMINE HCL 50 MG/ML VIAL IV PRN (08:47)
[2019-12-21] MEDS ORDERED: MEPERIDINE HCL/PF INJ 25 MG/1 ML DISP.SYRIN IV PRN (08:47)
[2019-12-21] MEDS ORDERED: PROMETHAZINE HCL INJ 25 MG/1 ML VIAL IV PRN ×2 (08:47)
[2019-12-21] MEDS ORDERED: FENTANYL CITRATE INJ/PF 100 MCG/2 ML AMPUL IV PRN ×3 (08:47)
[2019-12-21] MEDS ORDERED: ONDANSETRON HCL INJ/PF 4 MG/2 ML SDV IV PRN (08:47)
[2019-12-21] MEDS ORDERED: MORPHINE SULFATE 10 MG/ML INJ IV PRN (08:47)
--- NOTE | 2019-12-21 09:02 | Operative Report ---
Operative Report DATE OF SURGERY: 12/21/19 PREOPERATIVE DIAGNOSIS: Intra-abdominal IUD POSTOPERATIVE DIAGNOSIS: Same OPERATION: Diagnostic laparoscopy lysis of adhesions removal of IUD SURGEON: SHERRY CASTILLO ANESTHESIA: GA TISSUE REMOVED OR ALTERED: None ESTIMATED BLOOD LOSS: Negligible PROCEDURE: She placed in dorsolithotomy patient prepped in sterile fashion. Speculum placed cervix visualized and grasped with single-tooth tenaculum Hulka tenaculum was placed single-tooth neck was removed speculum was removed. There was drained with a catheter. Turned to the abdomen where a subumbilical midline incision was made trocar was reduced with isolation of the abdomen and reduction of laparoscope. The IUD noted to be adhered to the distal portion of the left fallopian tube. Second puncture was made lateral to the midline on the left and using harmonic scalpel the adhesions were gently taken down. IUD was grasped and 10 was made to pull it back through the port the very tip of the wing of the IUD broke up. IUD was then pulled through a larger port. Search was made for the small tip but could not be located. And was deflated the trocar sleeves removed the incision umbilicus was closed using 0 Vicryl for the fascia and 4 oh subcu puncture on the left was closed with subcu 4-0 Vicryl. The neck was removed and she was taken recovery room good condition.
[2019-12-21] MEDS ORDERED: PROMETHAZINE HCL INJ 25 MG/1 ML VIAL ONE (09:04)
[2019-12-21] MEDS ORDERED: OXYCODONE-ACETAMINOPHEN 5-325 MG TABLET PO PRN (09:32)
[2019-12-21] MEDS ORDERED: ONDANSETRON HCL 8 MG TABLET PO PRN (09:33)
[2019-12-21] MEDS ORDERED: GLYCOPYRROLATE 1 MG/5 ML VIAL ONE (09:53)
[2019-12-21] MEDS ORDERED: NEOSTIGMINE METHYLSULFATE 10 MG/10 ML VIAL ONE (09:53)
[2019-12-21] MEDS ORDERED: VECURONIUM BROMIDE INJ 10 MG VIAL IV ONE (09:53)
[2019-12-21] MEDS ORDERED: IBUPROFEN 800 MG TABLET PO SCH (10:00)
[2019-12-21] MEDS ORDERED: IBUPROFEN 800 MG TABLET ONE (10:03)
[2019-12-21 11:21] VITALS: BP 112/61
== END 2019-12-21 11:00 | disposition home or self-care (01) ==
LOC: OROUT 06:09
PROVIDERS: ATTEND Obstetrics & Gynecology Gynecology
DX: T83.32XA Displacement of intrauterine contraceptive device, initial encounter (principal); Y83.8 Other surgical procedures as the cause of abnormal reaction of the patient, or of later complication, without mention of misadventure at the time of the procedure; Y76.8 Miscellaneous obstetric and gynecological devices associated with adverse incidents, not elsewhere classified; Z87.891 Personal history of nicotine dependence; J45.909 Unspecified asthma, uncomplicated; Z03.818 Encounter for observation for suspected exposure to other biological agents ruled out; E66.9 Obesity, unspecified; Z68.41 Body mass index [BMI] 40.0-44.9, adult
CPT/HCPCS: 36415; 85027; 87635; 81005; 81025; 49329; J2250; J3490 ×4; J1100; J3010; J2710; J2550; J2405; J2704; 840